=== PATIENT | female | born 1990 | race American Indian/Alaskan Native ===

== ENCOUNTER 2017-01-04 02:56 | Emergency (ER) | payer MEDICARE, MEDICAID ==
[2017-01-04 03:01] VITALS: BMI 32.2
[2017-01-04 03:09] VITALS: BP 148/87; PULSE 125; RESP 20; TEMP 97.9; O2SAT 100
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
== END 2017-01-04 06:57 | disposition home or self-care (01) ==
LOC: ED 02:56
DX: S01.81XA Laceration without foreign body of other part of head, initial encounter (principal); S09.90XA Unspecified injury of head, initial encounter; Y04.0XXA Assault by unarmed brawl or fight, initial encounter; Y92.009 Unspecified place in unspecified non-institutional (private) residence as the place of occurrence of the external cause; F17.210 Nicotine dependence, cigarettes, uncomplicated